=== PATIENT | male | born 1985 | race Caucasian/White ===

== ENCOUNTER 2021-04-18 18:12 | Emergency (ER) | payer OTHER ==
[~2021-04-18] VITALS: Ht 185.4 cm; Wt 86.7 kg
[~2021-04-18 18:12] MED LIST: ALBU0.63 NEB; GABA300C10 PO; HYDR-3237 PO; TOPI100T24 PO
--- NOTE | 2021-04-18 19:07 | NUR ---
PT AMBULATORY WITH STEADY GAIT FROM LOBBY TO ED ROOM 4
--- NOTE | 2021-04-18 19:11 | NUR ---
PT PRESENTS WITH SWELLING, REDNESS AND SCABS TO LOWER LEGS FROM [employer]. PT RESTING ON GURNEY. ERP AT BEDSIDE
[2021-04-18] MEDS ORDERED: BACITRACIN ZINC OINT 500U/GM, 0.9 GM ONE (19:43)
--- NOTE | 2021-04-18 19:58 | NUR ---
THIS RN CLEANED, AND DRESSED THE WOUND WITH BACITRACIN AND GAUZE. PT TOLERATED WOUND CARE, RESTING COMFORTABLY ON GURNEY.
[2021-04-18 20:12] VITALS: BP 99/64
--- NOTE | 2021-04-18 20:19 | NUR ---
Patient/Caregiver given discharge instructions and they have confirmed that they understand the instructions. Patient ambulatory with steady gait.
== END 2021-04-18 20:21 | disposition home or self-care (01) ==
LOC: ED 20:00
DX: T24.292A Burn of second degree of multiple sites of left lower limb, except ankle and foot, initial encounter (principal); T24.291A Burn of second degree of multiple sites of right lower limb, except ankle and foot, initial encounter; F17.210 Nicotine dependence, cigarettes, uncomplicated; T31.0 Burns involving less than 10% of body surface; X08.8XXA Exposure to other specified smoke, fire and flames, initial encounter; Y93.89 Activity, other specified; Y92.89 Other specified places as the place of occurrence of the external cause; Y99.8 Other external cause status
CPT/HCPCS: 16020; 99282